=== PATIENT | female | born 1990 | race Caucasian/White ===

== ENCOUNTER → 2018-08-10 | Outpatient (CLI) | payer OTHER ==
[~2018-08-10] MED LIST: PRENATAL1 TA3 PO
== END | disposition home or self-care (01) ==
LOC: US 10:30
DX: M89.8X8 Other specified disorders of bone, other site (principal)

== ENCOUNTER 2019-06-08 17:25 | Emergency (ER) | payer OTHER ==
[~2019-06-08] VITALS: Ht 160 cm; Wt 90.7 kg
[2019-06-08] MEDS ORDERED: Motrin,Rufen800 MG PO (18:42)
== END 2019-06-08 18:49 | disposition home or self-care (01) ==
LOC: ED 17:25
DX: S93.402A Sprain of unspecified ligament of left ankle, initial encounter (principal); Z79.899 Other long term (current) drug therapy; X58.XXXA Exposure to other specified factors, initial encounter; Y93.01 Activity, walking, marching and hiking; Y92.89 Other specified places as the place of occurrence of the external cause; Y99.8 Other external cause status

== ENCOUNTER 2019-07-13 16:19 | Emergency (ER) | payer OTHER ==
[~2019-07-13] VITALS: Ht 160 cm; Wt 95.3 kg
[~2019-07-13 16:19] MED LIST changes: +Motrin,Rufen800 MG PO
[2019-07-13] MEDS ORDERED: IBU800 MG PO (18:05)
== END 2019-07-13 18:22 | disposition home or self-care (01) ==
LOC: ED 16:19
DX: S92.414A Nondisplaced fracture of proximal phalanx of right great toe, initial encounter for closed fracture (principal); W22.8XXA Striking against or struck by other objects, initial encounter; Y93.89 Activity, other specified; Y92.89 Other specified places as the place of occurrence of the external cause; Y99.8 Other external cause status

== ENCOUNTER → 2019-10-27 | Outpatient (CLI) | payer OTHER ==
[~2019-10-27] MED LIST changes: +IBU800 MG PO
[2019-10-28 09:06] LABS: THYROID PEROXIDASE (TPO) AB 12 IU/mL (0-34)
[2019-10-28 13:08] LABS: THYROGLOBULIN ANTIBODY <1.0 IU/mL (0.0-0.9)
[2019-10-29 04:07] LABS: THYROTROPIN RECEPTOR AB <1.10 IU/L (0.00-1.75)
== END | disposition home or self-care (01) ==
LOC: LAB 15:25
PROVIDERS: Nurse Practitioner Family
DX: E03.9 Hypothyroidism, unspecified (principal); R53.83 Other fatigue